=== PATIENT | male | born 1970 | race Two or more races ===

== ENCOUNTER 2022-03-06 16:44 | Emergency (ER) | payer MEDICAID ==
[~2022-03-06] VITALS: Ht 165.1 cm; Wt 122.5 kg
[2022-03-06 16:50] VITALS: BP_SYST 132
[2022-03-06] MEDS ORDERED: HYDR-3927 PO (21:07)
[2022-03-06] MEDS ORDERED: HYDROcodone/ACETAMIN 10-325 MG TAB PO ONE (21:15)
== END 2022-03-06 21:19 | disposition home or self-care (01) ==
LOC: SED 16:44
DX: S83.91XA Sprain of unspecified site of right knee, initial encounter (principal); M17.11 Unilateral primary osteoarthritis, right knee; E11.9 Type 2 diabetes mellitus without complications; I10 Essential (primary) hypertension; W10.8XXA Fall (on) (from) other stairs and steps, initial encounter; Y93.89 Activity, other specified; Y92.89 Other specified places as the place of occurrence of the external cause; Y99.8 Other external cause status
CPT/HCPCS: 73502; 73560-TC; 99284